=== PATIENT | male | born 1990 | race Caucasian/White ===

== ENCOUNTER 2017-02-06 10:28 | Emergency (ER) | payer OTHER ==
[~2017-02-06] VITALS: Ht 170.2 cm; Wt 95.3 kg
[2017-02-06 10:34] VITALS: BP 131/97
--- NOTE | 2017-02-06 11:19 | NUR ---
PATIENT AMBULATED TO BED 5 AT THIS TIME.
[2017-02-06] MEDS ORDERED: ALBUTEROL 0.083% 2.5 MG/3 ML NEBU INH ONE (11:20)
[2017-02-06] MEDS ORDERED: predniSONE 20 MG TAB PO ONE (11:20)
[2017-02-06] MEDS ORDERED: ALBUTEROL SULFATE/IPRATROPIU 3 ML SOL IH ONE (11:20)
--- NOTE | 2017-02-06 11:20 | NUR ---
PATIENT PRESENTS TO ED WITH C/O SOB FOR 9 HOURS, WITH WHEZZING ,MEDICATION REFILL OF ALBUTEROL; DENIES N/V/D; SKIN IS PINK/WARM/DRY; AAOX4 WITH EVEN AND STEADY GAIT; LUNGS I&E WHZ BL; HR EVEN AND REGULAR; PT DENIES ANY FEVER, CP, OR COUGH AT THIS TIME; PATIENT STATES PAIN OF 0/10 AT THIS TIME; VSS; PATIENT POSITIONED FOR COMFORT; HOB ELEVATED; BEDRAILS UP X2; BED DOWN. ER MD MADE AWARE OF PT STATUS.
--- NOTE | 2017-02-06 11:34 | NUR ---
ADMITING DX: SOB HX: ASTHMA LOC AWAKE AND ALERT RESPONSIVE RECEIVD ON SUPPLEMENTAL OXYGEN AT 2 LPM VIA NC EDUCATION PROVIDED TO PATIENT WITH ACKNOWLEDGEMENT ON HHN THERAPY AND RESPIRATORY DRUGS HHN THERAPY GIVEN ORDERED ENCOURAGED DEEP BREATH AND COUGH DURING THERAPY TOLERATED WELL WITHOUT INCIDENT POST THERAPY PLACED BACK ON SUPPLEMENTAL OXYGEN AT 2 LPM VIA NC REY/RN AWARE
[2017-02-06 12:43] VITALS: BP 148/92
--- NOTE | 2017-02-06 12:43 | NUR ---
Patient discharged with v/s stable. Written and verbal after care instructions given and explained. Patient alert, oriented and verbalized understanding of instructions. Ambulatory with steady gait. All questions addressed prior to discharge. ID band removed. Patient advised to follow up with PMD. Rx of NORCO, MOTRIN given. Patient educated on indication of medication including possible reaction and side effects. Opportunity to ask questions provided and answered.
== END 2017-02-06 12:43 | disposition home or self-care (01) ==
LOC: MED 10:28
DX: J45.901 Unspecified asthma with (acute) exacerbation (principal)
CPT/HCPCS: 94640; 99283; J7512; J7613; J7620

== ENCOUNTER 2022-03-16 21:09 | Emergency (ER) | payer OTHER ==
[~2022-03-16] VITALS: Ht 172.7 cm; Wt 108.9 kg
[2022-03-16 21:12] VITALS: BP 120/76
[2022-03-16] MEDS ORDERED: PRON INH ×2 (22:16→22:21)
[2022-03-16] MEDS ORDERED: ALBU0.0912 IH ×2 (22:16→22:21)
[2022-03-16 22:24] VITALS: BP 120/76
== END 2022-03-16 22:24 | disposition home or self-care (01) ==
LOC: MED 21:09
DX: R11.0 Nausea (principal); Z76.0 Encounter for issue of repeat prescription; J45.909 Unspecified asthma, uncomplicated; Z87.891 Personal history of nicotine dependence; Z79.899 Other long term (current) drug therapy
CPT/HCPCS: 99281

== ENCOUNTER 2022-04-24 20:34 | Emergency (ER) | payer OTHER ==
[~2022-04-24] VITALS: Ht 172.7 cm; Wt 111.1 kg
[~2022-04-24 20:34] MED LIST: ALBU0.0912 IH; PRON INH
[2022-04-24 20:41] VITALS: BP 102/63
--- NOTE | 2022-04-24 21:28 | NUR ---
Dr. Sheehan examining patient.
[2022-04-24] MEDS ORDERED: ALBU0.0912 IH (21:43)
== END 2022-04-24 21:57 | disposition home or self-care (01) ==
LOC: MED 20:34
DX: J45.909 Unspecified asthma, uncomplicated (principal); Z76.0 Encounter for issue of repeat prescription
CPT/HCPCS: 99281

== ENCOUNTER 2022-05-25 22:13 | Emergency (ER) | payer OTHER ==
[~2022-05-25] VITALS: Ht 172.7 cm; Wt 113.4 kg
[2022-05-25 22:24] VITALS: BP 183/95
--- NOTE | 2022-05-25 22:24 | NUR ---
Patient ambulated to bed 8.
--- NOTE | 2022-05-25 22:26 | NUR ---
Patient BIB by family from home. C/O Adult-Asthma x today. Patient reported, had asthma attack and difficulty breathing all day, and ran out his IH medications. PMHx: Asthma
[2022-05-25] MEDS ORDERED: ALBUTEROL 0.083% 2.5 MG/3 ML NEBU INH ONE (22:30)
[2022-05-25] MEDS ORDERED: predniSONE 20 MG TAB PO ONE (22:30)
--- NOTE | 2022-05-25 22:43 | NUR ---
Respiratory Therapist at bedside for respiratory intervention.
--- NOTE | 2022-05-25 23:19 | NUR ---
Dr. Hernandez examining patient.
[2022-05-25] MEDS ORDERED: PRON INH (23:22)
[2022-05-25] MEDS ORDERED: ALBU0.0912 INH (23:22)
[2022-05-25] MEDS ORDERED: PRED20TA5 PO (23:22)
[2022-05-25 23:33] VITALS: BP 131/97
--- NOTE | 2022-05-25 23:33 | NUR ---
Patient discharged with v/s stable. Written and verbal after care instructions given and explained. Patient alert, oriented and verbalized understanding of instructions. Ambulatory with steady gait. All questions addressed prior to discharge. ID band removed. Patient advised to follow up with PMD. Rx of Prednisone, Albuterol and Proventil 0.083 % NEB given. Patient educated on indication of medication including possible reaction and side effects. Opportunity to ask questions provided and answered.
== END 2022-05-25 23:33 | disposition home or self-care (01) ==
LOC: MED 22:13
DX: J45.901 Unspecified asthma with (acute) exacerbation (principal)
CPT/HCPCS: 94640; 99283; J7512; J7613

== ENCOUNTER 2022-08-09 09:43 | Emergency (ER) | payer OTHER ==
[~2022-08-09] VITALS: Ht 172.7 cm; Wt 111.6 kg
[~2022-08-09 09:43] MED LIST changes: +ALBU0.0912 INH; +PRED20TA5 PO
[2022-08-09 10:04] VITALS: BP 156/87
--- NOTE | 2022-08-09 10:12 | NUR ---
32/M WALKED IN C/O ASTHMA FLAREUP. PT STATES HE RAN OUT OF INHALER FOR TWO DAYS AND THE DIFFICULTY OF BREATHING GOT WORSE TODAY. ON ROOM AIR, SATTING 95%. AAO4, AMBULATORY. PMH: ASTHMA
[2022-08-09] MEDS ORDERED: PRON INH (10:27)
[2022-08-09] MEDS ORDERED: PRED20TA5 PO (10:27)
[2022-08-09] MEDS ORDERED: ALBU0.0912 INH (10:27)
--- NOTE | 2022-08-09 10:30 | NUR ---
Patient discharged with v/s stable. Written and verbal after care instructions given and explained. Patient alert, oriented and verbalized understanding of instructions. Ambulatory with steady gait. All questions addressed prior to discharge. ID band removed. Patient advised to follow up with PMD. Patient educated on indication of medication including possible reaction and side effects. Opportunity to ask questions provided and answered.
== END 2022-08-09 10:30 | disposition home or self-care (01) ==
LOC: MED 09:43
DX: J45.909 Unspecified asthma, uncomplicated (principal); Z76.0 Encounter for issue of repeat prescription
CPT/HCPCS: 99283

== ENCOUNTER 2022-09-07 19:43 | Emergency (ER) | payer OTHER ==
[~2022-09-07] VITALS: Ht 172.7 cm; Wt 108.9 kg
[2022-09-07 19:48] VITALS: BP 160/90
--- NOTE | 2022-09-07 19:51 | NUR ---
TO LOBBY A/W BED AMBULATORY
--- NOTE | 2022-09-07 21:33 | NUR ---
DR BRANDT EXAMINING PT
[2022-09-07] MEDS ORDERED: PRON INH (21:43)
[2022-09-07] MEDS ORDERED: ALBU0.0912 IH (21:43)
[2022-09-07] MEDS ORDERED: PRED20TA5 PO (21:43)
[2022-09-07 21:45] VITALS: BP 138/89
--- NOTE | 2022-09-07 21:45 | NUR ---
Patient discharged with v/s stable. Written and verbal after care instructions given and explained. Patient alert, oriented and verbalized understanding of instructions. Ambulatory with steady gait. All questions addressed prior to discharge. ID band removed. Patient advised to follow up with PMD. Rx of ALBUTEROL, DELTASONE, given. Patient educated on indication of medication including possible reaction and side effects. Opportunity to ask questions provided and answered.
== END 2022-09-07 21:45 | disposition home or self-care (01) ==
LOC: MED 19:43
DX: J45.909 Unspecified asthma, uncomplicated (principal)
CPT/HCPCS: 99283

== ENCOUNTER 2022-11-21 08:17 | Emergency (ER) | payer OTHER ==
[~2022-11-21] VITALS: Ht 172.7 cm; Wt 113.4 kg
[2022-11-21 08:22] VITALS: BP 158/93
--- NOTE | 2022-11-21 08:26 | NUR ---
32/M WALKED IN REQUESTING MED REFILL FOR ALBUTEROL NEB AND INH FOR ASTHMA. PT REPORTS RUNNING OUT OF MED X 3 DAYS. DENIES ANY COMPLAINTS AT THIS TIME. PMH: ASTHMA
[2022-11-21] MEDS ORDERED: PRON INH (09:03)
[2022-11-21] MEDS ORDERED: ALBU0.0912 IH (09:03)
== END 2022-11-21 09:05 | disposition home or self-care (01) ==
LOC: MED 08:17
DX: J45.909 Unspecified asthma, uncomplicated (principal); Z76.0 Encounter for issue of repeat prescription; Z79.899 Other long term (current) drug therapy
CPT/HCPCS: 99281

== ENCOUNTER 2022-12-13 19:23 | Emergency (ER) | payer OTHER ==
[~2022-12-13] VITALS: Ht 172.7 cm; Wt 114.8 kg
[2022-12-13 19:27] VITALS: BP 167/87
--- NOTE | 2022-12-13 22:41 | NUR ---
CALLED IN LOBBY TO BRING BACK TO ROOM, NO ANSWER
--- NOTE | 2022-12-13 22:55 | NUR ---
CALLED IN LOBBY, NO ANSWER
[2022-12-14] MEDS ORDERED: PRON INH (07:06)
[2022-12-14] MEDS ORDERED: ALBU0.0912 INH (07:06)
== END 2022-12-13 22:41 | disposition left against medical advice (07) ==
LOC: MED 19:23
DX: Z76.0 Encounter for issue of repeat prescription (principal); Z53.21 Procedure and treatment not carried out due to patient leaving prior to being seen by health care provider
CPT/HCPCS: 99281

== ENCOUNTER 2022-12-14 06:29 | Emergency (ER) | payer OTHER ==
[~2022-12-14] VITALS: Ht 172.7 cm; Wt 113.4 kg
[2022-12-14 06:38] VITALS: BP 148/86
--- NOTE | 2022-12-14 06:38 | NUR ---
TO BED AMBULATORY
--- NOTE | 2022-12-14 06:55 | NUR ---
Patient resting in bed, A/Ox4, chest rise and fall symmetrical, no c/o pain or s/s of distress.
[2022-12-14] MEDS ORDERED: PRON INH (07:06)
[2022-12-14] MEDS ORDERED: ALBU0.0912 INH (07:06)
[2022-12-14 07:12] VITALS: BP 124/85
== END 2022-12-14 07:10 | disposition home or self-care (01) ==
LOC: MED 06:29
DX: J45.20 Mild intermittent asthma, uncomplicated (principal); Z79.899 Other long term (current) drug therapy
CPT/HCPCS: 99281

== ENCOUNTER 2023-04-05 22:15 | Emergency (ER) | payer OTHER ==
[~2023-04-05] VITALS: Ht 175.3 cm; Wt 113.4 kg
[2023-04-05 22:22] VITALS: BP 140/91; PULSE 102; RESP 17; TEMP 97.6; O2SAT 96
--- NOTE | 2023-04-05 22:25 | NUR ---
TO LOBBY A/W BED AMBULATORY
[2023-04-05] MEDS ORDERED: ALBU0.0912 INH (22:44)
[2023-04-05] MEDS ORDERED: PRON INH (22:44)
[2023-04-05] MEDS ORDERED: NEBU-109 MC (22:46)
--- NOTE | 2023-04-05 22:50 | NUR ---
PT SEEN AND EVALUATED BY FINN MONTIEL. ALL ACI AND MEDICATION INFORMATION PROVIDED BY FINN MONTIEL. RX OF ALBUTEROL AND NEBULIZER PROVIDED.
== END 2023-04-05 22:50 | disposition home or self-care (01) ==
LOC: MED 22:15
DX: J45.909 Unspecified asthma, uncomplicated (principal); Z76.0 Encounter for issue of repeat prescription; Z79.899 Other long term (current) drug therapy
CPT/HCPCS: 99281

== ENCOUNTER 2024-06-09 18:48 | Emergency (ER) | payer OTHER ==
[~2024-06-09] VITALS: Ht 172.7 cm; Wt 114.8 kg
[~2024-06-09 18:48] MED LIST changes: +NEBU-109 MC
[2024-06-09 19:13] VITALS: BP 122/73; PULSE 91; RESP 20; TEMP 98; O2SAT 94
[2024-06-09] MEDS ORDERED: CETI10TA81 PO (19:50)
[2024-06-09] MEDS ORDERED: BUDE1AER2 IH (19:50)
[2024-06-09] MEDS ORDERED: ALBU0.0912 IH (19:50)
== END 2024-06-09 20:04 | disposition home or self-care (01) ==
LOC: MED 18:48
DX: J45.909 Unspecified asthma, uncomplicated (principal); Z76.0 Encounter for issue of repeat prescription; Z79.899 Other long term (current) drug therapy
CPT/HCPCS: 99281